=== PATIENT | female | born 1975 | race Caucasian/White ===

== ENCOUNTER 2017-03-29 19:59 | Emergency (ER) | payer BC ==
[2017-03-29] MEDS ORDERED: ALBUTEROL SULFATE/IPRATROPIUM 3 ML NEBU IH ONE ×4 (20:22→20:25)
[2017-03-29] MEDS ORDERED: ALBUTEROL SULFATE 60 PUFF INHALER IH ONE ×2 (20:46→20:49)
--- NOTE | 2017-03-29 20:49 | ERNOTE ---
Dyspnea - General Time Seen by Provider: 03/29/17 20:25 Source: patient Exam Limitations: no limitations - Immun/Allergies/Home Medications Immunizations: IMMUNIZATION HX Immunizations Up to Date Yes History of Influenza Vaccine Yes Hx Pneumococcal Vaccination Yes Allergies/Adverse Reactions: Allergies Penicillins Allergy (Severe, Verified 09/19/16 18:02) Anaphylaxis iodine Allergy (Verified 03/29/17 20:10) Home Medications: HOME MEDICATIONS NK [No Home Medication] 03/29/17 [Last Taken Unknown] - History of Present Illness Narrative: Here for feeling some congestion in the chest and some sensation of shortness of breath since she opened a box and inhaled some dust which appeared to be mold two days ago. She denies fever or chills and does not feel sick Review of Systems - Review of Systems Constitutional: Present: no symptoms reported EYE: Present: no symptoms reported ENT: Present: no symptoms reported Respiratory: Present: See HPI Cardiology: Present: no symptoms reported Gastrointestinal/Abdominal: Present: no symptoms reported Genitourinary: Present: no symptoms reported Musculoskeletal: Present: no symptoms reported - Patient's Past Medical History Patient History - Medical: Seizures, Other Patient History - Cardiac/Respiratory: No pertinent hx Patient History - Cancer: No Hx of Cancer Patient History - Surgical Procedures: Other Patient History - Other: None LMP (females 10-50): 2 weeks ago LMP (Calendar): 09/05/16 - Family History Father Family History - Medical: , No pertinent hx Family History - Cardiac/Respiratory: Hypertension Mother Family History - Medical: , No pertinent hx Family History - Cardiac/Respiratory: No pertinent hx - Social History Living Situations: home Abuse History: No History of abuse Psych History: No pertinent hx Smoking Status: Former smoker Alcohol Use: none Drug Use: none - Immunizations Immunizations Up to Date: Yes Hx Pneumococcal Vaccination: Yes History of Influenza Vaccine: Yes Physical Exam - Physical Exam General Appearance: Present: wd/wn, alert, no apparent distress Ears, Nose, Throat: Present: normal ENT inspection Neck: Present: normal inspection Respiratory: Present: lungs clear, other - However when pt is taking a deep breath I hear an opening snap on left base, no wheezing and no shortness of breath.. Absent: wheezing ED Progress - Vital Signs Patient's Vital Signs:: I have reviewed the patient's vital signs. Vital Signs: Vital Signs 03/29/17 03/29/17 20:02 20:24 Temperature 37.0 C Pulse Rate 89 83 Respiratory 22 H 98 H Rate Blood Pressure 158/76 O2 Sat by Pulse 99 Oximetry - X-Ray X-Ray #1 X-Ray: chest - Progress/Reassessment Chief Complaint: Dyspnea Plan - Plan Plan: I will treat this patient with Duoneb and an inhaler for her reactive airway disease Departure Clinical Impression: Reactive airway disease Qualifiers: Asthma severity: unspecified severity Asthma complication type: uncomplicated Qualified Code(s): J45.909 - Unspecified asthma, uncomplicated - Departure Disposition: Home self-care Condition: Good Instructions: Reactive Airway Disease, Pediatric, Asthma, Acute Bronchospasm Referrals: Lilia Krishnan, FORMAL WAITER/WAITRESS [Primary Care Provider] -
[2017-03-29 21:40] VITALS: BP 127/88
== END 2017-03-29 20:59 | disposition home or self-care (01) ==
LOC: ER 19:59
DX: J45.909 Unspecified asthma, uncomplicated (principal)

== ENCOUNTER 2017-06-17 03:57 | Emergency (ER) | payer BC ==
[2017-06-17 04:26] LABS: Urine Bilirubin Negative (NEGATIVE); Urine Blood 250 /ul (NEGATIVE); Urine Ketone Negative (NEGATIVE); Urine Nitrite Negative (NEGATIVE); Urine Protein Negative (NEGATIVE); Urine Specific Gravity >=1.030 SP.GR. (1.005-1.010); Urine Urobilinogen Normal (NORMAL)
[2017-06-17 04:28] LABS: Urine Amorphous Sediment Few - 1+ (NONE-FEW); Urine Appearance Slightly Cloudy; Urine Bacteria 2+; Urine Color Amber
[2017-06-17 04:56] LABS: Hematocrit 40.8 % (37.0-47.0); Hemoglobin 13.3 gm/dL (12.5-16.0); Mean Cell Volume 88.5 fl (78-100); Mean Corpuscular Hemoglobin 28.9 pg (27-31); Mean Corpuscular Hgb Conc 32.6 g/dl (32-36); Mean Platelet Volume 10.5 fl (6.0-9.5); Neutrophil % 45.3 % (42-75.0); Platelet Count 293 K/mm3 (150-450); Red Blood Count 4.61 M/mm3 (4.2-5.4); White Blood Count 6.7 K/mm3 (4.0-10.5)
--- NOTE | 2017-06-17 04:59 | ERNOTE ---
ER Female HPI Stated Complaint: UTI Presenting Symptoms: other - fatigue, left low back pain Time Seen by Provider: 06/17/17 04:40 Source: patient Exam Limitations: no limitations Immunizations: IMMUNIZATION HX Immunizations Up to Date Yes History of Influenza Vaccine Yes Hx Pneumococcal Vaccination Yes Allergies/Adverse Reactions: Allergies Penicillins Allergy (Severe, Verified 06/17/17 04:05) Anaphylaxis iodine Allergy (Verified 06/17/17 04:05) Home Medications: HOME MEDICATIONS NK [No Home Medication] 03/29/17 [Last Taken Unknown] - History of Present Illness Narrative: Pt states he has not felt well for over 24 hours. Has had left low back pain Timing: Present: constant Quality: Present: moderate Onset Location: Present: left flank Radiation: Present: none Activities at Onset: Present: none Review of Systems - Review of Systems Constitutional: Present: See HPI. Absent: recent illness EYE: Present: no symptoms reported ENT: Absent: nose congestion, sore throat Respiratory: Absent: cough Gastrointestinal/Abdominal: Absent: nausea, vomiting, abdominal pain Genitourinary: Present: See HPI. Absent: dysuria Musculoskeletal: Present: back pain Skin: Present: no symptoms reported Neurological: Present: no symptoms reported Endocrine: Present: no symptoms reported Hematologic/Lymphatic: Present: no symptoms reported Psych: Present: no symptoms reported - Patient's Past Medical History Patient History - Medical: Seizures, Other Patient History - Cardiac/Respiratory: No pertinent hx Patient History - Cancer: No Hx of Cancer Patient History - Surgical Procedures: Other Patient History - Other: None LMP (Calendar): 09/05/16 - Family History Father Family History - Medical: , No pertinent hx Family History - Cardiac/Respiratory: Hypertension Mother Family History - Medical: , No pertinent hx Family History - Cardiac/Respiratory: No pertinent hx - Social History Living Situations: home Abuse History: No History of abuse Psych History: No pertinent hx Smoking Status: Former smoker Patient requests Smoking Cessation Consult: No Initiate information on Smoking Cessation: No Alcohol Use: none Drug Use: none - Immunizations Immunizations Up to Date: Yes Hx Pneumococcal Vaccination: Yes History of Influenza Vaccine: Yes Physical Exam - Physical Exam General Appearance: Present: wd/wn, alert, no apparent distress Head Exam: Present: normal inspection, no evidence of injury Eye Exam: Normal inspection: bilateral Neck: Present: normal inspection, nontender Respiratory: Present: no respiratory distress, lungs clear Cardiovascular/Chest: Present: regular rate, rhythm, no murmur Gastrointestinal/Abdominal: Present: normal bowel sounds, nontender Back Exam: Present: no CVA tenderness, other - left SI tenderness Extremity Exam: Present: normal inspection, normal range of motion Neurological Exam: Present: alert, oriented, normal mood/affect Skin Exam: Present: normal color, warm/dry Lymphatic Exam: Present: no adenopathy ED Progress - Results and Orders Patient's Lab Results:: I have reviewed the patient's lab results. Results and Orders: Laboratory Tests 06/17/17 06/17/17 06/17/17 04:10 04:46 04:46 WBC 6.7 Hgb 13.3 Hct 40.8 Plt Count 293 Sodium 143 H Potassium 3.9 Chloride 107 H Carbon Dioxide 26.5 Anion Gap 13.4 BUN 9 Creatinine 1.03 BUN/Creatinine Ratio 8.7 L Random Glucose 99 Calcium 9.0 Total Bilirubin 0.3 AST 22 ALT 32 Alkaline Phosphatase 71 Total Protein 8.2 Albumin 4.0 Urine Color Sheila Urine Appearance Slightly cloudy Urine pH 6.0 Ur Specific [place] >=1.030 Urine Protein Negative Urine Glucose (UA) Negative Urine Ketones Negative Urine Blood 250 H Urine Nitrate Negative Urine Bilirubin Negative Urine Urobilinogen Normal Ur Leukocyte Esterase Negative Urine RBC 5-10 H Urine WBC 10-25 H Ur Epithelial Cells 5-10 H Amorphous Sediment Few - 1+ Urine Bacteria 2+ H Urine Culture Comments Culture to follow - Vital Signs Patient's Vital Signs:: I have reviewed the patient's vital signs. Vital Signs: Vital Signs 06/17/17 04:01 Temperature 36.5 C Pulse Rate 73 Respiratory 18 Rate Blood Pressure 139/100 O2 Sat by Pulse 100 Oximetry - Progress/Reassessment Chief Complaint: Genitourinary Problem Departure Clinical Impression: Sacroiliac (ligament) sprain Qualifiers: Encounter type: initial encounter Qualified Code(s): S33.6XXA - Sprain of sacroiliac joint, initial encounter - Departure Disposition: Home self-care Condition: Good Instructions: Sacroiliac Joint Dysfunction Referrals: Lilia Krishnan, FINANCE EFFECTIVENESS MANAGER [Primary Care Provider] -
[2017-06-17 05:12] LABS: Anion Gap 13.4 mmol/L (6.8-13.8); BUN/Creatinine Ratio 8.7 (9.0-21.6); Bilirubin, Total 0.3 mg/dL (0.0-1.1); Ca. Corrected For Albumin 8.7 mg/dL (8.4-10.2); Carbon Dioxide 26.5 mmol/L (24-32.6); Potassium 3.9 mmol/L (3.4-4.6); Total Protein 8.2 gm/dL (6.2-8.2)
[2017-06-17 05:46] VITALS: BP 131/90
== END 2017-06-17 05:34 | disposition home or self-care (01) ==
LOC: ER 03:57
DX: S33.6XXA Sprain of sacroiliac joint, initial encounter (principal)